=== PATIENT | female | born 1940 | race Caucasian/White ===

== ENCOUNTER 2020-11-30 16:47 | Emergency (ER) | payer MEDICARE, OTHER, SELFPAY ==
[2020-11-30] VITALS (9 sets, daily range): BP systolic 120–176; BP diastolic 55–86; PULSE 86–92; RESP 26–34; TEMP 36.5; O2SAT 91–97; BMI 22.8
--- NOTE | 2020-11-30 16:49 | DI.RAD.S_ITS ---
PROCEDURE: XR CHEST 1V INDICATIONS: Shortness of breath TECHNIQUE: One view of the chest was acquired. COMPARISON: None. FINDINGS: Surgical changes and devices: None. Lungs and pleura: Bilateral interstitial and airspace infiltrates consistent with pneumonia. No pleural effusions or pneumothorax. Mediastinum: Mediastinal contours appear normal. Heart size is normal. Bones and chest wall: No suspicious bony lesions. Overlying soft tissues appear unremarkable. IMPRESSION: Bilateral interstitial and airspace infiltrates consistent with pneumonia. Dictated by: Jose Maria Novoa M.D. on 11/30/2020 at 17:11 Approved by: Jose Maria Novoa M.D. on 11/30/2020 at 17:11
--- NOTE | 2020-11-30 16:51 | ED.GENADULT ---
HPI - General Adult General Chief complaint: Shortness of Breath/Dyspnea Stated complaint: desaturation, needing more oxygen Time Seen by Provider: 11/30/20 16:47 Source: patient and EMS Mode of arrival: EMS Limitations: no limitations History of Present Illness HPI narrative: 79-year-old female. History of pulmonary fibrosis. At baseline is on 8 L of oxygen at home secondary to this. She is brought in by EMS for evaluation of increasing work of breathing and desaturations and having to turn her oxygen up at home to maintain her normal oxygen saturations of 92-95%. Patient denies chest pain. Was having some anxiety secondary to this symptoms. Has had a cough and has had a sputum production but it is not more than normal. No fevers. She has never had pneumonia in the past. She did miss the dose of her Sildenafil this morning. Related Data Allergies Allergy/AdvReac Type Severity Reaction Status Date / Time No Known Drug Allergies Allergy Verified 11/30/20 16:44 Review of Systems Constitutional Constitutional: Denies fever(s) Cardiovascular Cardiovascular: Denies chest pain Respiratory Respiratory: Reports as per HPI Gastrointestinal Gastrointestinal: Denies abdominal pain Musculoskeletal Musculoskeletal: Reports system reviewed and no additional complaints, except as documented Integumentary/Breasts Skin/Breast: Reports system reviewed and no additional complaints, except as documented Neurologic Neurologic: Reports system reviewed and no additional complaints, except as documented Psychiatric Psychiatric: Reports anxiety Hematologic/Lymphatic Hematologic/Lymphatic: Reports system reviewed and no additional complaints, except as documented Patient History Medical History (Updated 11/30/20 @ 19:03 by Ryan Noriega DO) Idiopathic pulmonary fibrosis Pulmonary hypertension Sarcoidosis Social History Smoking Status: Never smoker Smoking Status: Never smoker alcohol intake frequency: other Substance Use Type: does not use Exam Initial Vital Signs Initial Vital Signs: Vital Signs Temperature 97.7 F 11/30/20 16:44 Pulse Rate 92 H 11/30/20 16:44 Respiratory Rate 26 H 11/30/20 16:44 Blood Pressure 176/86 H 11/30/20 16:44 Pulse Oximetry 97 11/30/20 16:44 Const General: cooperative and anxious HENMT Head: normal to inspection and normocephalic Chest Chest: normal inspection of the chest Resp Effort & Inspection: labored, respiratory distress and tachypneic Auscultation: clear to auscultation bilaterally Cardio Rate: regular rate GI Inspection: normal to inspection Skin General: no rashes or lesions noted Neuro General: patient alert, patient awake and moves all extremities Extrem General: normal to inspection and capillary refill normal Psych Appearance: grossly normal Course Orders Ordered: ED Orders 11/30/20 16:49 XR chest 1V Stat EKG-12 Lead Stat 11/30/20 16:50 Complete Blood Count AUTO DIFF Stat RT Consult Eval and Treat Now 11/30/20 17:00 COVID19 - ADMIT (DOG RAISER swab/PCR) Stat 11/30/20 17:35 Comprehensive Metabolic Panel Stat NT-proBNP (BNP-Adult 18+) Stat Procalcitonin Stat Troponin & CK Cardiac Panel Stat Vital Signs Vital signs: Vital Signs - 8 hr 11/30/20 16:44 11/30/20 16:55 11/30/20 17:00 Temperature 97.7 F Pulse Rate 92 H 87 91 H Respiratory Rate 26 H 33 H 34 H Blood Pressure 176/86 H Pulse Oximetry 97 95 96 11/30/20 17:01 11/30/20 17:30 Temperature Pulse Rate 89 86 Respiratory Rate 34 H 32 H Blood Pressure 134/71 127/74 Pulse Oximetry 97 97 Medical Decision Making Lab Data Lab results reviewed: Yes I reviewed the patient's lab results. Result diagrams: 11/30/20 16:50 11/30/20 17:35 Labs: Lab Results 11/30/20 11/30/20 11/30/20 Range/Units 16:50 17:00 17:35 WBC 11.4 H (4.5-11.0) X10^3/uL RBC 5.39 H (4.0-5.2) X10^6/uL Hgb 15.4 (12.0-16.0) g/dL Hct 48.4 H (36-46) % MCV 89.7 (80-100) fL MCH 28.5 (26-34) PG MCHC 31.8 (30-36) % RDW 14.7 (11.6-14.8) % Plt Count 297 (150-400) X10^3/uL Neut % (Auto) 84.2 H (50-75) % Lymph % (Auto) 8.8 L (25-40) % [place] % (Auto) 5.0 (3-14) % Eos % (Auto) 1.3 L (2-4) % Baso % (Auto) 0.7 (0-2) % Neut # (Auto) 9600 H (7996-7324) /uL Lymph # (Auto) 1000 L (6350-2562) /uL [place] # (Auto) 600 (0-900) /uL Eos # (Auto) 100 (0-450) /uL Baso # (Auto) 100 (0-100) /uL Sodium 135 L (137-145) mmol/L Potassium 4.8 (3.4-5.1) mmol/L Chloride 98 (98-107) mmol/L Carbon Dioxide 33 H (22-32) mmol/L BUN 21 H (7-17) mg/dL Creatinine 0.43 L (0.52-1.04) mg/dL Estimated GFR > 60.0 (>60) mL/min BUN/Creatinine Ratio 48.8 H (6-22) Glucose 114 H (80-110) mg/dL Calcium 10.6 H (8.4-10.2) mg/dL Total Bilirubin 0.3 (0.2-1.3) mg/dL AST 33 (14-36) IU/L ALT 15 (<35) IU/L Alkaline Phosphatase 108 (38-126) U/L Total Creatine Kinase < 20 L (30-135) U/L CK-MB (CK-2) TNP CK-MB (CK-2) Rel Index TNP Troponin I 0.018 (0.01-0.034) ng/mL NT-Pro-B Natriuret Pep 3060 H (<450) pg/mL Total Protein 7.6 (6.3-8.2) g/dL Albumin 3.7 (3.5-5.0) g/dL Globulin 3.9 (1.7-4.1) g/dL Albumin/Globulin Ratio 0.9 L (1.0-2.8) Procalcitonin (<0.5) ng/mL SARS-CoV-2 (PCR) Negative (Negative) 11/30/20 Range/Units 17:35 WBC (4.5-11.0) X10^3/uL RBC (4.0-5.2) X10^6/uL Hgb (12.0-16.0) g/dL Hct (36-46) % MCV (80-100) fL MCH (26-34) PG MCHC (30-36) % RDW (11.6-14.8) % Plt Count (150-400) X10^3/uL Neut % (Auto) (50-75) % Lymph % (Auto) (25-40) % [place] % (Auto) (3-14) % Eos % (Auto) (2-4) % Baso % (Auto) (0-2) % Neut # (Auto) (6321-0124) /uL Lymph # (Auto) (2441-1561) /uL [place] # (Auto) (0-900) /uL Eos # (Auto) (0-450) /uL Baso # (Auto) (0-100) /uL Sodium (137-145) mmol/L Potassium (3.4-5.1) mmol/L Chloride (98-107) mmol/L Carbon Dioxide (22-32) mmol/L BUN (7-17) mg/dL Creatinine (0.52-1.04) mg/dL Estimated GFR (>60) mL/min BUN/Creatinine Ratio (6-22) Glucose (80-110) mg/dL Calcium (8.4-10.2) mg/dL Total Bilirubin (0.2-1.3) mg/dL AST (14-36) IU/L ALT (<35) IU/L Alkaline Phosphatase (38-126) U/L Total Creatine Kinase (30-135) U/L CK-MB (CK-2) CK-MB (CK-2) Rel Index Troponin I (0.01-0.034) ng/mL NT-Pro-B Natriuret Pep (<450) pg/mL Total Protein (6.3-8.2) g/dL Albumin (3.5-5.0) g/dL Globulin (1.7-4.1) g/dL Albumin/Globulin Ratio (1.0-2.8) Procalcitonin 0.06 (<0.5) ng/mL SARS-CoV-2 (PCR) (Negative) Imaging Data Chest x-ray: Radiologist's Impression: [address] [id number] ReportSigned Patient: Andry Aly#: [id number]: 3Acct:[id number]/Sex: 79 / FDate of Service: 11/30/20Loc: EDAccession Number: [id number] Procedure: XR chest 1V Ordering Provider: Ryan Noriega D.O. PROCEDURE: XR CHEST 1V INDICATIONS: Shortness of breath TECHNIQUE: One view of the chest was acquired. COMPARISON: None. FINDINGS: Surgical changes and devices: None. Lungs and pleura: Bilateral interstitial and airspace infiltrates consistent with pneumonia. No pleural effusions or pneumothorax. Mediastinum: Mediastinal contours appear normal. Heart size is normal. Bones and chest wall: No suspicious bony lesions. Overlying soft tissues appear unremarkable. IMPRESSION: Bilateral interstitial and airspace infiltrates consistent with pneumonia. Dictated by: Jose Maria Novoa M.D. on 11/30/2020 at 17:11 Approved by: Jose Maria Novoa M.D. on 11/30/2020 at 17:11 ECG Data Attestation: I personally reviewed and interpreted this ECG as follows: Interpretation: Sinus rhythm Ventricular rate 87 Normal QRS Normal QTC Inverted T-waves 3 AVF V1 V3 V4 MDM Narrative Medical decision making narrative: During her time here in the emergency department we were able to wean her back to her normal 8 L by nasal cannula. She maintained an oxygen saturation between 90 and 94% on this. Her labs are unremarkable. Chest x-ray did mention concern for pneumonia however she does not have leukocytosis. Negative procalcitonin. Does have sputum production but this is not new. She does have a clear lung exam. She is afebrile. Plan will be is to hold on any antibiotics for now. I did discuss this with the patient and family and they agree with this. We will discharge home 1 her home oxygen. They were given strict return precautions. They expressed understanding agreement. After further discussion it did appear that recently she has missed 3 doses of her Sildenafil over the past 1-2 days. Discharge Plan Departure Patient Disposition: Home Clinical Impression: Pulmonary fibrosis Instructions: How to Measure Oxygen Saturation via Pulse Oximetry, How to Perform Oxygen Therapy via Cannula Activity Restrictions/Additional Instructions: Continue all of your medications as directed. Continue to use the home oxygen as directed as needed. Please return to the emergency department for any new or worsening symptoms
[2020-11-30 17:04] LABS: Add Manual Diff / Slide Review NO; Basophils Absolute Auto 100 /uL (0-100); Basophils Percent Auto 0.7 % (0-2); Eosinophils Absolute Auto 100 /uL (0-450); Eosinophils Percent Auto 1.3 % (2-4); Hematocrit 48.4 % (36-46); Hemoglobin 15.4 g/dL (12.0-16.0); Lymphocytes Absolute Auto 1000 /uL (1100-4500); Lymphocytes Percent Auto 8.8 % (25-40); Mean Corpuscular HGB Conc 31.8 % (30-36); Mean Corpuscular Hemoglobin 28.5 PG (26-34); Mean Corpuscular Volume 89.7 fL (80-100); Monocytes Absolute Auto 600 /uL (0-900); Neutrophils Absolute Auto 9600 /uL (1500-7000); Neutrophils Percent Auto 84.2 % (50-75); Platelet Count 297 X10^3/uL (150-400); Red Blood Cell Count 5.39 X10^6/uL (4.0-5.2); Red Cell Distribution Width 14.7 % (11.6-14.8); White Blood Cell Count 11.4 X10^3/uL (4.5-11.0)
[2020-11-30 17:59] LABS: COVID19 - ADMIT (NP swab/PCR) Negative (Negative)
[2020-11-30 18:19] LABS: Alanine Aminotransferase 15 IU/L (<35); Albumin 3.7 g/dL (3.5-5.0); Albumin Globulin Ratio 0.9 (1.0-2.8); Alkaline Phosphatase 108 U/L (38-126); Aspartate Aminotransferase 33 IU/L (14-36); BUN Creatinine Ratio 48.8 (6-22); Bilirubin Total 0.3 mg/dL (0.2-1.3); Blood Urea Nitrogen 21 mg/dL (7-17); Calcium 10.6 mg/dL (8.4-10.2); Carbon Dioxide 33 mmol/L (22-32); Chloride 98 mmol/L (98-107); Creatine Kinase < 20 U/L (30-135); Estimated Glomerular Filt Rate > 60.0 mL/min (>60); Globulin 3.9 g/dL (1.7-4.1); Glucose 114 mg/dL (80-110); HEMOLYSIS < 15 (0-50); Potassium 4.8 mmol/L (3.4-5.1); Sodium 135 mmol/L (137-145); Total Protein 7.6 g/dL (6.3-8.2)
[2020-11-30 18:31] LABS: NT-proBNP (BNP-Adult 18+) 3060 pg/mL (<450); Troponin I 0.018 ng/mL (0.01-0.034)
[2020-11-30 18:35] LABS: Procalcitonin 0.06 ng/mL (<0.5)
--- NOTE | 2020-11-30 19:46 | PC.NURSE ---
Report given to [facility] for ride home
== END 2020-11-30 19:46 | disposition home or self-care (01) ==
PROVIDERS: Emergency Provider Emergency Medicine
DX: J84.10 Pulmonary fibrosis, unspecified (principal); R05 Cough; Z20.822 Contact with and (suspected) exposure to COVID-19; I27.20 Pulmonary hypertension, unspecified
CPT/HCPCS: 36415; 71045; 80053; 82550; 83880; 84145; 84484; 85025; 87635; 93005; 93010; 99283; 99284; C9803